=== PATIENT | male | born 1970 | race Caucasian/White ===

== ENCOUNTER 2018-09-21 12:52 | Emergency (ER) | payer SELFPAY ==
[2018-09-21 13:05] VITALS: BP 128/79
[2018-09-21] MEDS ORDERED: ONDANSETRON HCL INJ/PF 4 MG/2 ML SDV IV ONE (14:05)
--- NOTE | 2018-09-21 14:09 | ER Document Report ---
Addendum entered and electronically signed by LESTER HONG NP 09/21/18 16:10: Discharge - Discharge Clinical Impression: Abdominal pain Qualifiers: Abdominal location: right lower quadrant Qualified Code(s): R10.31 - Right lower quadrant pain Condition: Stable Disposition: AGAINST MEDICAL ADVICE Instructions: Abdominal Pain ([facility]) Additional Instructions: Tylenol Motrin as needed for pain. Follow-up with your doctor at the next available appointment. Follow-up sooner or return immediately to the emergency department for worsening pain, fever, persistent vomiting, blood in your vomit or stool, or for any further concerns. Forms: Elevated Blood Pressure, Smoking Cessation Education Referrals: [facility] [Provider Group] - Follow up as needed Course - Re-evaluation Re-evalutation: 09/21/18 16:09 Patient is here with complaints of right-sided abdominal pain. I seen the patient in triage he was noted to have tenderness to the the right side of his abdomen. His white blood cell count is elevated at 14. LFTs are normal. CT of the abdomen and pelvis has been ordered. The patient states that he needs to l eave because his ride is leaving and he cannot wait any longer. I had a long discussion with the patient regarding the fact that he could have a serious illness such as acute appendicitis, cholecystitis or other serious infection in his abdomen that if he leaves without having the CT that he risk getting more sick, and even potentially dying. Patient verbalized understanding of this. He is of sound mind to make this decision. The patient will be leaving AGAINST MEDICAL ADVICE. His IV will be taken out and he was given discharge instructions with instructions to return the emergency department immediately if he has any worsening pain or any further symptoms. - Vital Signs Vital signs: Temp Pulse Resp BP Pulse Ox 99.0 F 58 L 15 128/79 H 99 09/21/18 13:04 09/21/18 13:04 09/21/18 13:04 09/21/18 13:04 09/21/18 13:04 - Laboratory Result Diagrams: 09/21/18 14:45 09/21/18 14:45 Laboratory results interpreted by me: 09/21/18 09/21/18 14:45 14:45 WBC 14.9 H Seg Neutrophils % 86.9 H Lymphocytes % 10.8 L Monocytes % 1.9 L Absolute Neutrophils 13.0 H Calcium 11.2 H Original Note: ED Medical Screen (RME) - General Chief Complaint: Upper Abdominal Pain Stated Complaint: ABDOMINAL PAIN Time Seen by Provider: 09/21/18 14:01 Mode of Arrival: Ambulatory Information source: Patient TRAVEL OUTSIDE OF THE [place] IN LAST 30 DAYS: No - HPI Patient complains to provider of: ABdo Pain Onset: This morning Notes: 09/21/18 14:06 Patient is here with complaints of right-sided abdominal pain with nausea vomiting. Symptoms started this morning. Symptoms have been constant, nothing makes them better or worse. No diarrhea. No fever. No dysuria or hematuria. No chest pain or shortness of breath. States that he has had pain similar to this in the past. He had a CT approximately 4 years ago that was unremarkable a side from some hepatic steatosis. He denies any other specific complaints at this moment. Physical exam: No distress, nontoxic appearing. Tenderness to palpation along the entire right side of the abdomen upper and lower on limited triage exam. Plan: CBC, CMP, lipase, urine, saline lock, CT abdomen and pelvis with IV contrast. An initial examination was made on the patient as part of the triage process, and it was determined a more comprehensive evaluation was necessary. Initial labs were ordered and patient was transferred to another provider in the ED who assumed care and finished evaluation and plan. - Related Data Allergies/Adverse Reactions: hydrocodone [Hydrocodone] Allergy (Verified 09/21/18 12:55) Past Medical History - Social History Frequency of alcohol use: None Drug Abuse: Marijuana Renal/ Medical History: Denies: Hx Peritoneal Dialysis - Immunizations Hx Diphtheria, Pertussis, Tetanus Vaccination: Yes Physical Exam - Vital signs Vitals: Temp Pulse Resp BP Pulse Ox 99.0 F 58 L 15 128/79 H 99 09/21/18 13:04 09/21/18 13:04 09/21/18 13:04 09/21/18 13:04 09/21/18 13:04 Course - Vital Signs Vital signs: Temp Pulse Resp BP Pulse Ox 99.0 F 58 L 15 128/79 H 99 09/21/18 13:04 09/21/18 13:04 09/21/18 13:04 09/21/18 13:04 09/21/18 13:04
[2018-09-21 15:23] LABS: ABSOLUTE LYMPHOCYTES (AUTO) 1.6 10^3/uL (0.5-4.7); ABSOLUTE MONOCYTES (AUTO) 0.3 10^3/uL (0.1-1.4); BASOPHILS % (AUTO) 0.2 % (0-2); EOSINOPHILS % (AUTO) 0.2 % (0-6); HEMATOCRIT 44.5 % (37.9-51.0); HEMOGLOBIN 15.4 g/dL (13.5-17.0); LYMPHOCYTES % (AUTO) 10.8 % (13-45); MEAN CORPUSCULAR HEMOGLOBIN 29.6 pg (27.0-33.4); MEAN CORPUSCULAR HGB CONC 34.6 g/dL (32.0-36.0); MEAN CORPUSCULAR VOLUME 86 fl (80-97); MONOCYTES % (AUTO) 1.9 % (3-13); PLATELET COUNT 284 10^3/uL (150-450); RED CELL DISTRIBUTION WIDTH 13.4 % (11.5-14.0); SEGMENTED NEUTROPHILS % (AUTO) 86.9 % (42-78); TOTAL CELLS COUNTED % (AUTO) 100 %; WHITE BLOOD COUNT 14.9 10^3/uL (4.0-10.5)
[2018-09-21 15:47] LABS: ALANINE AMINOTRANSFERASE 23 U/L (21-72); ALBUMIN 4.7 g/dL (3.5-5.0); ALKALINE PHOSPHATASE 74 U/L (38-126); ANION GAP 5 (5-19); ASPARTATE AMINO TRANSFERASE 23 U/L (17-59); BILIRUBIN,DIRECT 0.3 mg/dL (0.0-0.4); BILIRUBIN,TOTAL 0.5 mg/dL (0.2-1.3); BLOOD UREA NITROGEN 9 mg/dL (7-20); CALCIUM 11.2 mg/dL (8.4-10.2); CARBON DIOXIDE 29 mmol/L (22-30); CHLORIDE 107 mmol/L (98-107); GLUCOSE 104 mg/dL (75-110); POTASSIUM 4.2 mmol/L (3.6-5.0); SODIUM 141.2 mmol/L (137-145); TOTAL PROTEIN 7.9 g/dL (6.3-8.2)
== END 2018-09-21 16:02 | disposition left against medical advice (07) ==
LOC: ER 12:52
DX: R10.31 Right lower quadrant pain (principal); R10.10 Upper abdominal pain, unspecified; R11.2 Nausea with vomiting, unspecified
CPT/HCPCS: 99284; 96374; 36415; 83690; 85025; 80053; J2405